=== PATIENT | male | born 1980 | race Caucasian/White ===

== ENCOUNTER 2019-04-23 15:18 | Emergency (ER) | payer OTHER ==
[~2019-04-23] VITALS: Ht 188 cm; Wt 90.7 kg
[2019-04-23] MEDS ORDERED: Augmentin 875-1 EACH PO (15:44)
== END 2019-04-23 15:50 | disposition home or self-care (01) ==
LOC: ER 15:18
DX: S61.051A Open bite of right thumb without damage to nail, initial encounter (principal); W54.0XXA Bitten by dog, initial encounter; Z88.8 Allergy status to other drugs, medicaments and biological substances
CPT/HCPCS: 90471; 90714; 99283-25

== ENCOUNTER 2019-09-12 10:16 | Emergency (ER) | payer OTHER ==
[~2019-09-12] VITALS: Ht 188 cm; Wt 95.2 kg
[~2019-09-12 10:16] MED LIST: Augmentin 875-1 EACH PO
[2019-09-12 11:05] LABS: BASOPHILS ABSOLUTE AUTO 0.03 K/mm3 (0.00-0.23); BASOPHILS PERCENT AUTO 1 % (0-2); EOSINOPHILS ABSOLUTE AUTO 0.14 K/mm3 (0.00-0.68); EOSINOPHILS PERCENT AUTO 3 % (0-6); Hematocrit 46.9 % (37.0-53.0); Hemoglobin 15.8 g/dL (13.5-17.5); IMMATURE GRAN ABSOLUTE AUTO 0.01 K/mm3 (0.00-0.10); IMMATURE GRAN PERCENT AUTO 0 % (0-1); LYMPHOCYTES ABSOLUTE AUTO 1.26 K/mm3 (0.84-5.20); LYMPHOCYTES PERCENT AUTO 23 % (21-46); MONOCYTES ABSOLUTE AUTO 0.36 K/mm3 (0.16-1.47); MONOCYTES PERCENT AUTO 7 % (4-13); Mean Corpuscular HGB 30.6 pg (26.0-34.0); Mean Corpuscular HGB Conc 33.7 g/dL (31.5-36.5); Mean Corpuscular Volume 91 fL (80-100); Mean Platelet Volume 10.5 fL (9.1-12.4); NEUTROPHILS ABSOLUTE AUTO 3.62 K/mm3 (1.96-9.15); NEUTROPHILS PERCENT AUTO 67 % (41-73); Platelet Count 188 K/mm3 (150-400); RDW Coefficient Variation 12.4 % (11.7-14.2); RDW Standard Deviation 41.7 fL (35.1-46.3); Red Blood Cell Count 5.17 M/mm3 (4.30-5.90); White Blood Cell Count 5.42 K/mm3 (4.00-11.30)
[2019-09-12 11:27] LABS: Alanine Aminotransfer (ALT/SGP 23 U/L (12-78); Albumin/Globulin Ratio 1.2 (0.8-1.8); Alk Phos 82 U/L (50-136); Anion Gap 6 mmol/L (6-16); Aspartate Aminotrans (AST/SGOT 25 U/L (12-37); Bilirubin, Total 0.6 mg/dL (0.1-1.0); Blood Urea Nitrogen 14 mg/dL (8-24); Bun/Creatinine Ratio 16.7 (12.0-20.0); CO2, Blood 23 mmol/L (21-32); Calcium, Blood 8.6 mg/dL (8.5-10.1); Chloride, Blood 111 mmol/L (98-108); Creatinine, Blood 0.84 mg/dL (0.60-1.20); Globulin, Blood 3.4 g/dL (2.2-4.0); Glomerular Filtration Rate >60 (60-); Glucose, Blood 99 mg/dL (70-99); Potassium, Blood 4.3 mmol/L (3.5-5.5); Sodium, Blood 140 mmol/L (136-145); Total Protein, Blood 7.4 g/dL (6.4-8.2); Troponin I <0.015 ng/mL (0.000-0.040)
[2019-09-12] MEDS ORDERED: Prednisone20 MG PO (12:23)
[2019-09-12] MEDS ORDERED: ALBU90OI INH (12:23)
== END 2019-09-12 12:53 | disposition home or self-care (01) ==
LOC: ER 10:16
PROVIDERS: Emergency Medicine
DX: J06.9 Acute upper respiratory infection, unspecified (principal); Z91.09 Other allergy status, other than to drugs and biological substances; Z87.01 Personal history of pneumonia (recurrent); Z87.891 Personal history of nicotine dependence
CPT/HCPCS: 36415; 71046; 80053; 84484; 85025; 93005; 93010; 99284-25

== ENCOUNTER → 2022-11-25 | Outpatient (CLI) | payer OTHER ==
[~2022-11-25] MED LIST changes: +ALBU90OI INH; +NAPROXEN500 MG PO; +Prednisone20 MG PO; +XARELTO20 M1 PO
[2022-11-25 12:11] LABS: BASOPHILS ABSOLUTE AUTO 0.02 K/mm3 (0.00-0.23); BASOPHILS PERCENT AUTO 0 % (0-2); EOSINOPHILS ABSOLUTE AUTO 0.08 K/mm3 (0.00-0.68); EOSINOPHILS PERCENT AUTO 1 % (0-6); IMMATURE GRAN ABSOLUTE AUTO 0.04 K/mm3 (0.00-0.10); IMMATURE GRAN PERCENT AUTO 1 % (0-1); LYMPHOCYTES ABSOLUTE AUTO 0.91 K/mm3 (0.84-5.20); LYMPHOCYTES PERCENT AUTO 12 % (21-46); MONOCYTES ABSOLUTE AUTO 0.72 K/mm3 (0.16-1.47); MONOCYTES PERCENT AUTO 9 % (4-13); Mean Corpuscular HGB 29.1 pg (26.0-34.0); Mean Corpuscular HGB Conc 34.2 g/dL (31.5-36.5); Mean Corpuscular Volume 85 fL (80-100); Mean Platelet Volume 10.6 fL (9.1-12.4); NEUTROPHILS ABSOLUTE AUTO 6.13 K/mm3 (1.96-9.15); NEUTROPHILS PERCENT AUTO 78 % (41-73); Platelet Count 198 K/mm3 (150-400); RDW Standard Deviation 43.8 fL (35.1-46.3); Red Blood Cell Count 4.47 M/mm3 (4.30-5.90)
[2022-11-25 12:22] LABS: Albumin, Blood 2.7 g/dL (3.4-5.0); Albumin/Globulin Ratio 0.6 (0.8-1.8); Bilirubin, Total 0.5 mg/dL (0.1-1.0); Bun/Creatinine Ratio 14.5 (12.0-20.0); Calcium, Blood 8.6 mg/dL (8.5-10.1); Creatinine, Blood 1.1 mg/dL (0.60-1.20); Globulin, Blood 4.8 g/dL (2.2-4.0); Total Protein, Blood 7.5 g/dL (6.4-8.2)
[2022-11-25 13:08] LABS: CPK Creatine Kinase 45 U/L (39-308)
[2022-11-25 13:25] LABS: Creatine Kinase MB <1.0 ng/mL (0.0-3.6); Creatine Kinase MB Index Unable to Calculate (0.0-4.0)
== END | disposition home or self-care (01) ==
LOC: LAB SHORT 12:04 → LAB 12:04
PROVIDERS: Emergency Medicine
DX: R53.83 Other fatigue (principal); R06.09 Other forms of dyspnea
CPT/HCPCS: 80053; 82550; 82553; 83880; 84484; 85025

== ENCOUNTER 2022-11-29 20:46 | Inpatient (IN) | payer OTHER ==
[~2022-11-29] VITALS: Ht 185.4 cm; Wt 96.2 kg
[~2022-11-29 20:46] MED LIST changes: -NAPROXEN500 MG PO; -XARELTO20 M1 PO
[2022-11-29 23:30] LABS: International Normalized Ratio 1.13; Prothrombin Time Results 11.8 Sec (9.7-11.5)
[2022-11-29 23:33] LABS: Albumin, Blood 2.8 g/dL (3.4-5.0); Albumin/Globulin Ratio 0.6 (0.8-1.8); Bilirubin, Direct 0.1 mg/dL (0.0-0.3); Bilirubin, Indirect 0.2 mg/dL (0.1-0.7); Bilirubin, Total 0.3 mg/dL (0.1-1.0); Globulin, Blood 4.7 g/dL (2.2-4.0); Total Protein, Blood 7.5 g/dL (6.4-8.2)
[2022-11-30] LABS: Source, Urine Clean Catch
[2022-11-30 00:02] LABS: Bilirubin, Urine Neg (Neg); Blood, Urine 1+ (Neg); Glucose Qualitative, Urine Neg (Neg); Ketones, Urine Neg (Neg); Leukocyte Esterase, Urine Neg (Neg); Nitrite, Urine Neg (Neg); Protein, Urine 1+ (Neg); Specific Gravity, Urine 1.015 (1.003-1.022); Urobilinogen, Urine NORM (Normal); pH, Urine 6.5 (5.0-8.0)
[2022-11-30 00:18] LABS: Appearance, Urine Clear (Clear); Color, Urine Yellow (P-Yellow)
[2022-11-30 00:19] LABS: Bacteria Few /hpf; Mucus Light (0-Heavy); Red Blood Cells, Urine 0-2 /hpf (0-2); Squamous Epithelial Cells Few /hpf (Few); White Blood Cells, Urine 0-2 /hpf (0-5)
[2022-11-30 01:16] LABS: Anti-Xa UFH, PHA Monitoring <0.10 IU/mL
[2022-11-30 07:29] LABS: BASOPHILS ABSOLUTE AUTO 0.01 K/mm3 (0.00-0.23); BASOPHILS PERCENT AUTO 0 % (0-2); EOSINOPHILS PERCENT AUTO 0 % (0-6); Hemoglobin 12.1 g/dL (13.5-17.5); IMMATURE GRAN ABSOLUTE AUTO 0.06 K/mm3 (0.00-0.10); IMMATURE GRAN PERCENT AUTO 1 % (0-1); LYMPHOCYTES ABSOLUTE AUTO 0.97 K/mm3 (0.84-5.20); LYMPHOCYTES PERCENT AUTO 18 % (21-46); MONOCYTES ABSOLUTE AUTO 0.11 K/mm3 (0.16-1.47); MONOCYTES PERCENT AUTO 2 % (4-13); Mean Corpuscular HGB 27.8 pg (26.0-34.0); Mean Corpuscular HGB Conc 31.8 g/dL (31.5-36.5); Mean Corpuscular Volume 87 fL (80-100); Mean Platelet Volume 10.2 fL (9.1-12.4); NEUTROPHILS ABSOLUTE AUTO 4.23 K/mm3 (1.96-9.15); NEUTROPHILS PERCENT AUTO 79 % (41-73); Platelet Count 273 K/mm3 (150-400); RDW Coefficient Variation 14.2 % (11.7-14.2); Red Blood Cell Count 4.35 M/mm3 (4.30-5.90); White Blood Cell Count 5.38 K/mm3 (4.00-11.30)
[2022-11-30 08:01] LABS: Albumin, Blood 2.8 g/dL (3.4-5.0); Albumin/Globulin Ratio 0.6 (0.8-1.8); Bilirubin, Total 0.4 mg/dL (0.1-1.0); Bun/Creatinine Ratio 15.5 (12.0-20.0); Calcium, Blood 8.9 mg/dL (8.5-10.1); Creatinine, Blood 0.9 mg/dL (0.60-1.20); Potassium, Blood 4.7 mmol/L (3.5-5.5); Total Protein, Blood 7.8 g/dL (6.4-8.2)
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
--- NOTE | 2022-11-30 16:49 | NUR ---
PATIENT OFF UNIT VIA HIS BED TO ASSOCIATE TEAM PHYSICIAN FOR THROMBECTOMY.
--- NOTE | 2022-11-30 18:49 | NUR ---
SHIFT SUMMARY: PATIENT RETURNED TO ROOM FROM IR AT 1836 VIA HIS BED. HEPARIN GTT RESTARTED AT 1838, PHARMACY NOTIFIED OF TIME HEPARIN GTT OFF. R GROIN SITE HAS FEM STOP IN PLACE COVERED WITH TEGADERM, NO HEMATOMA NOTED. DIET ADVANCED TO REGULAR, TRAY ORDERED BUT IT MAY BE TOO LATE FOR DELIVERY. DENIES PAIN. PT UNDERSTANDS THAT HE NEEDS TO STAY IN BED O/N. REPORT GIVEN TO Natalie SANTOS RN.
[2022-11-30] MEDS ORDERED: NAPROXEN500 MG PO (20:03)
[2022-12-01 05:00] LABS: Hematocrit 33.3 % (37.0-53.0); Hemoglobin 10.7 g/dL (13.5-17.5); Mean Corpuscular HGB 28.2 pg (26.0-34.0); Mean Corpuscular HGB Conc 32.1 g/dL (31.5-36.5); Mean Corpuscular Volume 88 fL (80-100); Mean Platelet Volume 10.2 fL (9.1-12.4); Platelet Count 261 K/mm3 (150-400); RDW Coefficient Variation 14.3 % (11.7-14.2); RDW Standard Deviation 46.1 fL (35.1-46.3); Red Blood Cell Count 3.79 M/mm3 (4.30-5.90); White Blood Cell Count 9.47 K/mm3 (4.00-11.30)
--- NOTE | 2022-12-01 05:15 | NUR ---
SHIFT SUMMARY 42 YR M ADMITTED ON 11/30/22 FOR IVC THROMBUS. FULL CODE. PT HAS BEEN VERY COOPERATIVE POST OP AND HAS NOT GOTTEN OUT OF BED SINCE HIS PROCEDURE YESTERDAY. HE HAS HAD NO C/O PAIN OR DISCOMFORT. HE REQUESTED A JELLO AND THAT IS ALL HE HAS EATEN SINCE HE CAME BACK FROM THE [place]. HEPARIN DRIP IS STILL INFUSING. PT'S HAS BEEN AT BEDSIDE FOR THE ENTIRETY OF THIS SHIFT. HE IS A&O X 4 AND IS ABLE TO COMMUNICATE HIS NEEDS. RIGHT FEMORAL SITE IS WNL W/ NO SIGNS OF BLEEDING.
[2022-12-01 06:04] LABS: Albumin, Blood 2.4 g/dL (3.4-5.0); Albumin/Globulin Ratio 0.5 (0.8-1.8); Bilirubin, Total 0.3 mg/dL (0.1-1.0); Calcium, Blood 8.4 mg/dL (8.5-10.1); Creatinine, Blood 0.89 mg/dL (0.60-1.20); Globulin, Blood 4.6 g/dL (2.2-4.0); Potassium, Blood 4.2 mmol/L (3.5-5.5)
--- NOTE | 2022-12-01 09:49 | NUR ---
LEFT MESSAGE AT [facility] VASCULAR OFFICE FOR DR. VALDIVIA. ASKED HOW LONG HEPARIN SHOULD INFUSE AND NOTIFIED THAT PT'S HGB WAS 12.1 AND HAS DECREASED TO 10.7 TODAY.
[2022-12-01] MEDS ORDERED: XARELTO20 M1 PO (12:56)
--- NOTE | 2022-12-01 15:26 | NUR ---
PATIENT DISCHARGED TO HOME ACCOMPANIED BY HIS AND A FRIEND. IV SALINE LOCK REMOVED WITHOUT INCIDENT. VERBALIZED UNDERSTANDING OF D/C INSTRUCTIONS. HAS F/U APPT WITH DR. BRITTON AND WAS GIVEN SAMPLE PACK OF XARELTO. OFF UNIT VIA W/C AT 1405. NO PERSONAL BELONGINGS LEFT BEHIND IN ROOM.
== END 2022-12-01 14:21 | disposition home or self-care (01) | DRG 271 ==
LOC: ER 20:46 → MEDS 11-30 01:25
PROVIDERS: Internal Medicine; Student in an Organized Health Care Education/Training Program; ADMIT Internal Medicine
PROC: 06C03ZZ Extirpation of Matter from Inferior Vena Cava, Percutaneous Approach (ICD-10-PCS; principal; 2022-11-30)
PROC: 06CC3ZZ Extirpation of Matter from Right Common Iliac Vein, Percutaneous Approach (ICD-10-PCS; 2022-11-30)
PROC: B519YZA Fluoroscopy of Inferior Vena Cava using Other Contrast, Guidance (ICD-10-PCS; 2022-11-30)
PROC: B51 Imaging, Veins, Fluoroscopy (ICD-10-PCS; 2022-11-30)
PROC: B549ZZA Ultrasonography of Inferior Vena Cava, Guidance (ICD-10-PCS; 2022-11-30)
PROC: B54BZZA Ultrasonography of Right Lower Extremity Veins, Guidance (ICD-10-PCS; 2022-11-30)
DX: I82.220 Acute embolism and thrombosis of inferior vena cava (principal); E44.0 Moderate protein-calorie malnutrition; I82.429 Acute embolism and thrombosis of unspecified iliac vein; B34.9 Viral infection, unspecified; R74.01 Elevation of levels of liver transaminase levels; R59.1 Generalized enlarged lymph nodes; R63.4 Abnormal weight loss; R16.2 Hepatomegaly with splenomegaly, not elsewhere classified; Z86.718 Personal history of other venous thrombosis and embolism; Z91.041 Radiographic dye allergy status; Z79.899 Other long term (current) drug therapy; Z79.51 Long term (current) use of inhaled steroids; Z79.52 Long term (current) use of systemic steroids; Z98.890 Other specified postprocedural states; Z90.49 Acquired absence of other specified parts of digestive tract; Z87.891 Personal history of nicotine dependence; Z68.28 Body mass index [BMI] 28.0-28.9, adult; Z79.2 Long term (current) use of antibiotics
CPT/HCPCS: 36415; 37187; 70450; 71250; 74177; 75820; 75825; 76937; 80053; 80076; 81001; 83605; 85025; 85027; 85520; 85610; 85730; 87040; 93970; 96365; 96366; 96375; 99152; 99153; 99284-25; C1751; C1757; C1769; C1887; C1894; J1200; J1644; J1720; J2250; J2270; J2930; J3010; J7030; J7040; Q9967

== ENCOUNTER → 2022-12-07 | Outpatient (CLI) | payer OTHER ==
[~2022-12-07] MED LIST changes: +NAPROXEN500 MG PO; +XARELTO20 M1 PO
[2022-12-07 09:23] LABS: BASOPHILS ABSOLUTE AUTO 0.02 K/mm3 (0.00-0.23); BASOPHILS PERCENT AUTO 0 % (0-2); EOSINOPHILS ABSOLUTE AUTO 0.03 K/mm3 (0.00-0.68); EOSINOPHILS PERCENT AUTO 0 % (0-6); Hematocrit 35.5 % (37.0-53.0); Hemoglobin 11.5 g/dL (13.5-17.5); IMMATURE GRAN ABSOLUTE AUTO 0.08 K/mm3 (0.00-0.10); IMMATURE GRAN PERCENT AUTO 1 % (0-1); LYMPHOCYTES PERCENT AUTO 9 % (21-46); MONOCYTES ABSOLUTE AUTO 0.76 K/mm3 (0.16-1.47); MONOCYTES PERCENT AUTO 8 % (4-13); Mean Corpuscular HGB 28.7 pg (26.0-34.0); Mean Corpuscular HGB Conc 32.4 g/dL (31.5-36.5); Mean Corpuscular Volume 89 fL (80-100); Mean Platelet Volume 9.4 fL (9.1-12.4); NEUTROPHILS ABSOLUTE AUTO 8.09 K/mm3 (1.96-9.15); NEUTROPHILS PERCENT AUTO 82 % (41-73); Platelet Count 289 K/mm3 (150-400); RDW Coefficient Variation 14.6 % (11.7-14.2); RDW Standard Deviation 46.8 fL (35.1-46.3); Red Blood Cell Count 4.01 M/mm3 (4.30-5.90); White Blood Cell Count 9.88 K/mm3 (4.00-11.30)
[2022-12-07 10:24] LABS: Albumin, Blood 2.9 g/dL (3.4-5.0); Albumin/Globulin Ratio 0.5 (0.8-1.8); Bilirubin, Total 0.7 mg/dL (0.1-1.0); Bun/Creatinine Ratio 8.7 (12.0-20.0); Calcium, Blood 8.6 mg/dL (8.5-10.1); Creatinine, Blood 1.15 mg/dL (0.60-1.20); Globulin, Blood 5.7 g/dL (2.2-4.0); Potassium, Blood 4.4 mmol/L (3.5-5.5); Total Protein, Blood 8.6 g/dL (6.4-8.2)
[2022-12-08 07:11] LABS: HBSAG SCREEN Negative (Negative); HCV AB Non Reactive (Non Reactive); HEP B CORE AB, TOT Negative (Negative)
[2022-12-08 08:11] LABS: HIV AB/P24 AG SCREEN Non Reactive (Non Reactive)
== END | disposition home or self-care (01) ==
LOC: LAB 09:16 → LAB SHORT 09:16
PROVIDERS: Chiropractor
DX: R50.9 Fever, unspecified (principal); R74.01 Elevation of levels of liver transaminase levels; D64.9 Anemia, unspecified
CPT/HCPCS: 80053; 83605; 85025; 85060; 86704; 86708; 86803; 87340; 87389

== ENCOUNTER 2022-12-08 09:05 | Inpatient (IN) | payer OTHER ==
[~2022-12-08] VITALS: Ht 188 cm; Wt 93.1 kg
[2022-12-08 10:50] LABS: BASOPHILS ABSOLUTE AUTO 0.02 K/mm3 (0.00-0.23); BASOPHILS PERCENT AUTO 0 % (0-2); EOSINOPHILS ABSOLUTE AUTO 0.03 K/mm3 (0.00-0.68); EOSINOPHILS PERCENT AUTO 0 % (0-6); Hematocrit 33.8 % (37.0-53.0); Hemoglobin 10.8 g/dL (13.5-17.5); IMMATURE GRAN ABSOLUTE AUTO 0.05 K/mm3 (0.00-0.10); IMMATURE GRAN PERCENT AUTO 1 % (0-1); LYMPHOCYTES ABSOLUTE AUTO 1.13 K/mm3 (0.84-5.20); LYMPHOCYTES PERCENT AUTO 17 % (21-46); MONOCYTES ABSOLUTE AUTO 0.63 K/mm3 (0.16-1.47); MONOCYTES PERCENT AUTO 9 % (4-13); Mean Corpuscular HGB 28.1 pg (26.0-34.0); Mean Corpuscular Volume 88 fL (80-100); Mean Platelet Volume 9.5 fL (9.1-12.4); NEUTROPHILS ABSOLUTE AUTO 4.82 K/mm3 (1.96-9.15); NEUTROPHILS PERCENT AUTO 72 % (41-73); Platelet Count 273 K/mm3 (150-400); RDW Coefficient Variation 14.6 % (11.7-14.2); RDW Standard Deviation 46.9 fL (35.1-46.3); Red Blood Cell Count 3.85 M/mm3 (4.30-5.90); White Blood Cell Count 6.68 K/mm3 (4.00-11.30)
[2022-12-08 11:08] LABS: Albumin, Blood 2.9 g/dL (3.4-5.0); Albumin/Globulin Ratio 0.5 (0.8-1.8); Bilirubin, Total 0.5 mg/dL (0.1-1.0); Bun/Creatinine Ratio 12.6 (12.0-20.0); Calcium, Blood 9.1 mg/dL (8.5-10.1); Creatinine, Blood 0.95 mg/dL (0.60-1.20); Globulin, Blood 5.6 g/dL (2.2-4.0); Potassium, Blood 4.2 mmol/L (3.5-5.5); Total Protein, Blood 8.5 g/dL (6.4-8.2)
[2022-12-08 11:42] LABS: Source, Urine Clean Catch
[2022-12-08 11:46] LABS: Appearance, Urine Clear (Clear); Bilirubin, Urine Neg (Neg); Blood, Urine 3+ (Neg); Color, Urine Yellow (P-Yellow); Glucose Qualitative, Urine Neg (Neg); Ketones, Urine Neg (Neg); Leukocyte Esterase, Urine Neg (Neg); Nitrite, Urine Neg (Neg); Protein, Urine Neg (Neg); Urobilinogen, Urine NORM (Normal)
[2022-12-08 12:04] LABS: Red Blood Cells, Urine 0-2 /hpf (0-2); White Blood Cells, Urine 0-2 /hpf (0-5)
[2022-12-08 12:05] LABS: Bacteria Few /hpf; Squamous Epithelial Cells Rare /hpf (Few)
[2022-12-08 12:06] LABS: Mucus Light (0-Heavy)
[2022-12-08 16:08] LABS: International Normalized Ratio 1.36
[2022-12-08 16:51] LABS: Anti-Xa UFH, PHA Monitoring >1.50 IU/mL
--- NOTE | 2022-12-08 17:53 | NUR ---
PT ARRIVED TO ROOM 1700 VIA CART. NO DISTRESS NOTED. PT DOES HAVE CANE TO AMBULATE WITH AND WAS ABLE TO STAND AND WALK TO BED. PT AOX4 AND COOPERATIVE OF CARE. CALL LIGHT WITHIN REACH WILL CONTINUE TO MONITOR.
[2022-12-09 04:27] LABS: BASOPHILS ABSOLUTE AUTO 0.02 K/mm3 (0.00-0.23); BASOPHILS PERCENT AUTO 0 % (0-2); EOSINOPHILS ABSOLUTE AUTO 0.01 K/mm3 (0.00-0.68); EOSINOPHILS PERCENT AUTO 0 % (0-6); Hematocrit 30.3 % (37.0-53.0); Hemoglobin 9.7 g/dL (13.5-17.5); IMMATURE GRAN ABSOLUTE AUTO 0.05 K/mm3 (0.00-0.10); IMMATURE GRAN PERCENT AUTO 1 % (0-1); LYMPHOCYTES ABSOLUTE AUTO 1.07 K/mm3 (0.84-5.20); LYMPHOCYTES PERCENT AUTO 16 % (21-46); MONOCYTES ABSOLUTE AUTO 0.58 K/mm3 (0.16-1.47); MONOCYTES PERCENT AUTO 9 % (4-13); Mean Corpuscular HGB 28.4 pg (26.0-34.0); Mean Corpuscular Volume 89 fL (80-100); Mean Platelet Volume 9.6 fL (9.1-12.4); NEUTROPHILS ABSOLUTE AUTO 4.98 K/mm3 (1.96-9.15); NEUTROPHILS PERCENT AUTO 74 % (41-73); Platelet Count 253 K/mm3 (150-400); RDW Coefficient Variation 14.4 % (11.7-14.2); RDW Standard Deviation 46.4 fL (35.1-46.3); Red Blood Cell Count 3.42 M/mm3 (4.30-5.90); White Blood Cell Count 6.71 K/mm3 (4.00-11.30)
[2022-12-09 04:46] LABS: Albumin, Blood 2.6 g/dL (3.4-5.0); Albumin/Globulin Ratio 0.5 (0.8-1.8); Bilirubin, Total 0.5 mg/dL (0.1-1.0); Bun/Creatinine Ratio 16.8 (12.0-20.0); C-REACTIVE PROTEIN, EXT RANGE 3.5 mg/dL (0.000-0.300); Calcium, Blood 8.5 mg/dL (8.5-10.1); Creatinine, Blood 0.89 mg/dL (0.60-1.20); Potassium, Blood 4.2 mmol/L (3.5-5.5); Total Protein, Blood 7.6 g/dL (6.4-8.2)
--- NOTE | 2022-12-09 10:46 | NUR ---
DR PANG IN ROOM. DISCUSSED PT NPO. PT NEEDS GUANAKO. CALLED DR HSU. HE WILL SCHEDULE EG THEN GET SOMEONE TO DO GUANAKO TODAY. KEEP NPO.
--- NOTE | 2022-12-09 11:42 | NUR ---
TO GUANAKO PROCEDURE AT THIS TIME.
--- NOTE | 2022-12-09 12:29 | NUR ---
PATIENT BROUGHT BACK TO PROCEDURE ROOM IN [facility]. PATIENT PREPPED FOR GUANAKO. VSS.SEDATION GIVEN. PATIENT UNABLE TO PASS PROBE. PROCEDURE ENDED AT 12:22. PATIENT RETURNED TO ROOM VIA WHEELCHAIR. VSS ON ROOM AIR. PATIENT CONVERSING APPROPRIATELY.
--- NOTE | 2022-12-09 14:32 | NUR ---
NOTES TO CONTINUE HEPARIN GTT AT SAME RATE
--- NOTE | 2022-12-09 16:37 | NUR ---
PT QUITE PLEASANT ANBD COOP. TO ROOM THIS AFT. HAD ECHO THIS MORNING. THEN TO GUANAKO. HEART CENTER STATES UNABLE TO GET PROBE PAST STRICTURES IN THROAT. SO DID NOT PERFORM GUANAKO. PT KENNEDY ICE, THEN WATER, THEN JELLO, THEN LUNCH UPON RETURN TO ROOM. HEPARIN CONTINUES TO RUN. NO OTHER CONCERNS NOTED. BED IN LOW POSITION, CALLLITE IN REACH, CALLS APPROP
--- NOTE | 2022-12-09 22:12 | NUR ---
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 CURRENTLY TESTING POSITVE FOR STAFF IN BLOOD. PER ORDER FOR ISO CONTACT FOR MRSA DUE TO HX AND PRESUME POSITIVE UNTIL RULED OUT FOR CURRENT MRSA.
[2022-12-09 22:39] LABS: Vancomycin, Trough 14.3 ug/mL (5.0-10.0)
[2022-12-10 05:07] LABS: BASOPHILS ABSOLUTE AUTO 0.02 K/mm3 (0.00-0.23); BASOPHILS PERCENT AUTO 0 % (0-2); EOSINOPHILS ABSOLUTE AUTO 0.07 K/mm3 (0.00-0.68); EOSINOPHILS PERCENT AUTO 1 % (0-6); Hematocrit 29.8 % (37.0-53.0); Hemoglobin 9.5 g/dL (13.5-17.5); IMMATURE GRAN ABSOLUTE AUTO 0.03 K/mm3 (0.00-0.10); IMMATURE GRAN PERCENT AUTO 1 % (0-1); LYMPHOCYTES ABSOLUTE AUTO 1.23 K/mm3 (0.84-5.20); LYMPHOCYTES PERCENT AUTO 23 % (21-46); MONOCYTES ABSOLUTE AUTO 0.54 K/mm3 (0.16-1.47); MONOCYTES PERCENT AUTO 10 % (4-13); Mean Corpuscular HGB 28.6 pg (26.0-34.0); Mean Corpuscular HGB Conc 31.9 g/dL (31.5-36.5); Mean Corpuscular Volume 90 fL (80-100); Mean Platelet Volume 9.5 fL (9.1-12.4); NEUTROPHILS ABSOLUTE AUTO 3.41 K/mm3 (1.96-9.15); NEUTROPHILS PERCENT AUTO 64 % (41-73); Platelet Count 207 K/mm3 (150-400); RDW Coefficient Variation 14.6 % (11.7-14.2); RDW Standard Deviation 46.8 fL (35.1-46.3); Red Blood Cell Count 3.32 M/mm3 (4.30-5.90)
[2022-12-10 05:35] LABS: Albumin, Blood 2.6 g/dL (3.4-5.0); Albumin/Globulin Ratio 0.6 (0.8-1.8); Bilirubin, Total 0.4 mg/dL (0.1-1.0); Bun/Creatinine Ratio 16.9 (12.0-20.0); C-REACTIVE PROTEIN, EXT RANGE 2.22 mg/dL (0.000-0.300); Calcium, Blood 8.5 mg/dL (8.5-10.1); Creatinine, Blood 0.95 mg/dL (0.60-1.20); Globulin, Blood 4.5 g/dL (2.2-4.0); Potassium, Blood 4.1 mmol/L (3.5-5.5); Total Protein, Blood 7.1 g/dL (6.4-8.2)
--- NOTE | 2022-12-10 06:12 | NUR ---
MANAGER CONTRACTING SUMMARY PT A/OX4; AT BEDSIDE T/O THE NIGHT. PT PLACED IN CONTACT PRECAUTIONS FOR MRSA; SEE NOTE. NO ACUTE CHANGES. PT ABLE TO MAKE NEEDS KNOWN. PT MILDLY RESTLESS T/O THE NIGHT. C/O 4/10 PAIN IN LUQ. CALL TO STUDENT TEACHING COORDINATOR/DR COLLINS. NEW ORDER FOR 650MG TYLENOL Q6 PRN. CRITICAL APPT LAB 103.2 AT 0525; NOTIFIED PHARMACY; HEP DRIP ADJUSTED DOWN TO 20U/KG/HR, 37.6MLS HR. PT TOLERATING ORAL INTAKE. CALL LIGHT ACCESSIBLE.
--- NOTE | 2022-12-10 16:26 | NUR ---
SHIFT SUMMARY- NO ACUTE EVENTS THIS SHIFT. PT AOOX4. APPROPRIATE.
--- NOTE | 2022-12-10 17:02 | NUR ---
PT IS A/OX4, PLEASANT AND COOPERATIVE. TO OVER CARE OF THE PT AT THIS TIME. REPORT WAS TAKEN FROM SIOMARA CRUZ. PT APPEARS TO BE BREATHING EASILY AT THIS TIME. REPORTS NO NEEDS AT THIS TIME. CALL LIGHT IN REACH. WILL CONTINUE TO MONIOTR AND ASSESS FOR CHANGES
[2022-12-10 22:18] LABS: Vancomycin, Trough 13.1 ug/mL (5.0-10.0)
[2022-12-11 00:14] LABS: BASOPHILS ABSOLUTE AUTO 0.02 K/mm3 (0.00-0.23); BASOPHILS PERCENT AUTO 0 % (0-2); EOSINOPHILS ABSOLUTE AUTO 0.08 K/mm3 (0.00-0.68); EOSINOPHILS PERCENT AUTO 2 % (0-6); Hematocrit 30.2 % (37.0-53.0); Hemoglobin 9.6 g/dL (13.5-17.5); IMMATURE GRAN ABSOLUTE AUTO 0.04 K/mm3 (0.00-0.10); IMMATURE GRAN PERCENT AUTO 1 % (0-1); LYMPHOCYTES ABSOLUTE AUTO 1.38 K/mm3 (0.84-5.20); LYMPHOCYTES PERCENT AUTO 28 % (21-46); MONOCYTES ABSOLUTE AUTO 0.52 K/mm3 (0.16-1.47); MONOCYTES PERCENT AUTO 11 % (4-13); Mean Corpuscular HGB 28.4 pg (26.0-34.0); Mean Corpuscular HGB Conc 31.8 g/dL (31.5-36.5); Mean Corpuscular Volume 89 fL (80-100); Mean Platelet Volume 9.5 fL (9.1-12.4); NEUTROPHILS ABSOLUTE AUTO 2.92 K/mm3 (1.96-9.15); NEUTROPHILS PERCENT AUTO 59 % (41-73); Platelet Count 217 K/mm3 (150-400); RDW Coefficient Variation 14.4 % (11.7-14.2); RDW Standard Deviation 46.8 fL (35.1-46.3); Red Blood Cell Count 3.38 M/mm3 (4.30-5.90); White Blood Cell Count 4.96 K/mm3 (4.00-11.30)
[2022-12-11 00:37] LABS: Albumin, Blood 2.5 g/dL (3.4-5.0); Albumin/Globulin Ratio 0.5 (0.8-1.8); Bilirubin, Total 0.3 mg/dL (0.1-1.0); Bun/Creatinine Ratio 14.6 (12.0-20.0); Creatinine, Blood 0.89 mg/dL (0.60-1.20); Globulin, Blood 4.6 g/dL (2.2-4.0); Potassium, Blood 3.9 mmol/L (3.5-5.5); Total Protein, Blood 7.1 g/dL (6.4-8.2)
--- NOTE | 2022-12-11 04:57 | NUR ---
SHIFT SUMMARY 42 YR M ADMITTED ON 12/08/22 FOR BACTREMIA. FULL CODE. NO ACUTE CHANGES THIS SHIFT. PT IS A^O X 4 AND IS INDEPENDANT IN THE ROOM. HEPARIN INFUSING. PER PHARMACY HEPARIN WAS INCREASED TWICE THIS SHIFT AND IS NOW RUNNING @ 22ML/KG/HR. NO C/O PAIN OR DISCOMFORT THIS SHIFT.
--- NOTE | 2022-12-11 15:52 | NUR ---
SHIFT SUMMARY: NO NEW ACUTE CHANGES IN PATIENT CONDITION T/O SHIFT. PATIENT A&OX4. CALM, PLEASANT AND COOPERATIVE c CARE. USES CALL LIGHT APPRORIATELY AND ABLE TO MAKE NEEDS KNOWN. DENIES CP/PRESSURE, N/V, SOB AND NO FEVER. ON TELE, SR HR 87 BPM c BBB T/O SHIFT. PER, CUSTOMER SUPPORT TECHNICIAN GHANSHYAM. PATIENT REPORTS LAST GOOD BM WAS MONDAY. THIS RN CALLED DR. WANG REGARDING PATIENT ISSUES. DR. WANG PLACED ORDER ON EMAR. IV TO LAC INFUSING HEPARIN RATE CONTROLLED BY PHARMACY. IV TO R FOREARM SALINE LOCKED. VITAL SIGNS REVIEWED. BLOOD CX WAS DRAWN TODAY, AWAITING FOR RESULT. PATIENT AMBULATES IN ROOM INDEPENDENTLY. RECEIVED SCHEDULED MEDS PER EMAR. CALL LIGHT IN REACH.
[2022-12-12 03:20] LABS: BASOPHILS ABSOLUTE AUTO 0.03 K/mm3 (0.00-0.23); BASOPHILS PERCENT AUTO 1 % (0-2); EOSINOPHILS ABSOLUTE AUTO 0.08 K/mm3 (0.00-0.68); EOSINOPHILS PERCENT AUTO 2 % (0-6); Hematocrit 32.3 % (37.0-53.0); Hemoglobin 10.3 g/dL (13.5-17.5); IMMATURE GRAN ABSOLUTE AUTO 0.03 K/mm3 (0.00-0.10); IMMATURE GRAN PERCENT AUTO 1 % (0-1); LYMPHOCYTES ABSOLUTE AUTO 1.32 K/mm3 (0.84-5.20); LYMPHOCYTES PERCENT AUTO 27 % (21-46); MONOCYTES PERCENT AUTO 10 % (4-13); Mean Corpuscular HGB 28.6 pg (26.0-34.0); Mean Corpuscular HGB Conc 31.9 g/dL (31.5-36.5); Mean Corpuscular Volume 90 fL (80-100); Mean Platelet Volume 9.8 fL (9.1-12.4); NEUTROPHILS ABSOLUTE AUTO 3.01 K/mm3 (1.96-9.15); NEUTROPHILS PERCENT AUTO 61 % (41-73); Platelet Count 214 K/mm3 (150-400); RDW Coefficient Variation 14.6 % (11.7-14.2); RDW Standard Deviation 46.8 fL (35.1-46.3); White Blood Cell Count 4.97 K/mm3 (4.00-11.30)
[2022-12-12 03:39] LABS: Albumin, Blood 2.6 g/dL (3.4-5.0); Albumin/Globulin Ratio 0.6 (0.8-1.8); Bilirubin, Total 0.3 mg/dL (0.1-1.0); Bun/Creatinine Ratio 12.1 (12.0-20.0); Calcium, Blood 8.3 mg/dL (8.5-10.1); Creatinine, Blood 0.91 mg/dL (0.60-1.20); Globulin, Blood 4.7 g/dL (2.2-4.0); Potassium, Blood 4.1 mmol/L (3.5-5.5); Total Protein, Blood 7.3 g/dL (6.4-8.2)
--- NOTE | 2022-12-12 05:01 | NUR ---
BARBER SHOP OPERATOR SUMMARY PT A/OX4. PLEASANT AND COOPERATIVE. NO ACUTE CHANGES. NO CHANGE TO HEPARIN DRIP RATE; 23 U/KG/HR, 43.2 MLS HR. PT ABLE TO MAKE NEEDS KNOWN. VSS. PT INDPENDENT IN ROOM; CALL LIGHT ACCESSIBLE.
--- NOTE | 2022-12-12 16:37 | NUR ---
SHIFT SUMMARY HEPARIN GTT CONTINUED THIS SHIFT. NO CHANGES IN RATE. PT MEDICATED WITH MILK OF MAG AND HAD A LARGE BM TODAY. PT AWAITING PICC PLACEMENT & BLOOD CULTURES PRIOR TO DC. NO OTHER ACUTE CHANGES IN ASSESSMENT AT THIS TIME. PT REFUSED NEED FOR PAIN MEDS. VS REIVEWED. CALL LIGHT IN REACH. IND IN ROOM. DENIES OTHER NEEDS AT THIS TIME.
[2022-12-12 22:35] LABS: Vancomycin, Trough 15.3 ug/mL (5.0-10.0)
[2022-12-13 04:57] LABS: BASOPHILS ABSOLUTE AUTO 0.03 K/mm3 (0.00-0.23); BASOPHILS PERCENT AUTO 1 % (0-2); EOSINOPHILS ABSOLUTE AUTO 0.15 K/mm3 (0.00-0.68); EOSINOPHILS PERCENT AUTO 3 % (0-6); Hematocrit 30.4 % (37.0-53.0); Hemoglobin 9.7 g/dL (13.5-17.5); IMMATURE GRAN ABSOLUTE AUTO 0.06 K/mm3 (0.00-0.10); IMMATURE GRAN PERCENT AUTO 1 % (0-1); LYMPHOCYTES ABSOLUTE AUTO 1.41 K/mm3 (0.84-5.20); LYMPHOCYTES PERCENT AUTO 29 % (21-46); MONOCYTES PERCENT AUTO 12 % (4-13); Mean Corpuscular HGB 28.4 pg (26.0-34.0); Mean Corpuscular HGB Conc 31.9 g/dL (31.5-36.5); Mean Corpuscular Volume 89 fL (80-100); Mean Platelet Volume 9.4 fL (9.1-12.4); NEUTROPHILS PERCENT AUTO 55 % (41-73); Platelet Count 208 K/mm3 (150-400); RDW Coefficient Variation 14.8 % (11.7-14.2); RDW Standard Deviation 47.1 fL (35.1-46.3); Red Blood Cell Count 3.41 M/mm3 (4.30-5.90); White Blood Cell Count 4.95 K/mm3 (4.00-11.30)
[2022-12-13 05:20] LABS: Albumin, Blood 2.7 g/dL (3.4-5.0); Albumin/Globulin Ratio 0.6 (0.8-1.8); Bilirubin, Total 0.4 mg/dL (0.1-1.0); Bun/Creatinine Ratio 12.8 (12.0-20.0); Calcium, Blood 8.7 mg/dL (8.5-10.1); Creatinine, Blood 0.94 mg/dL (0.60-1.20); Globulin, Blood 4.5 g/dL (2.2-4.0); Potassium, Blood 4.3 mmol/L (3.5-5.5); Total Protein, Blood 7.2 g/dL (6.4-8.2)
--- NOTE | 2022-12-13 06:48 | NUR ---
SHIFT SUMMARY PT A&O X 4, REPORT FROM DAYSHIFT RN- NOTIFIED DR. ALICIA OF POSITIVE BLOOD CULTURES X 2- HEPARIN INFUSING PER ORDER, PT INDEPENDENT IN ROOM - VANCOMYCIN INFUSED PER ORDER IN THE NIGHT, CALL FROM TELE MONITOR =PT HR DECREASED TO 49 -PT DENIED SOB/CP- CALL FROM LAB AT 0540- PTT AT 122.8- CALL TO PHARMACY- ORDER TO HOLD HEPARIN FOR 1 HOUR AND DECREASE DOSE- STOPPED HEPARIN FROM 0545 TO 0645- RESUMED HEPARIN AT NEW RATE- BED LOW POSITION, CALL LIGHT WITHIN REACH
--- NOTE | 2022-12-13 16:16 | NUR ---
PATIENT IS ALERT AND ORIENTED AND COOPERATIVE WITH CARE. PATIENT IS INDEPENDENT IN HIS ROOM. HE HAS A GOOD APPETITE. IV ANTIBIOTICS CHANGED THIS SHIFT. IV HEPARIN INFUSING PER PHARMACY ORDERS. ORDERS FOR MRI. NO NEW CONCERNS THIS SHIFT. WILL CONTINUE TO MONITOR
[2022-12-14 03:40] LABS: BASOPHILS ABSOLUTE AUTO 0.04 K/mm3 (0.00-0.23); BASOPHILS PERCENT AUTO 1 % (0-2); EOSINOPHILS ABSOLUTE AUTO 0.14 K/mm3 (0.00-0.68); EOSINOPHILS PERCENT AUTO 3 % (0-6); IMMATURE GRAN ABSOLUTE AUTO 0.05 K/mm3 (0.00-0.10); IMMATURE GRAN PERCENT AUTO 1 % (0-1); LYMPHOCYTES ABSOLUTE AUTO 1.61 K/mm3 (0.84-5.20); LYMPHOCYTES PERCENT AUTO 32 % (21-46); MONOCYTES ABSOLUTE AUTO 0.47 K/mm3 (0.16-1.47); MONOCYTES PERCENT AUTO 9 % (4-13); Mean Corpuscular HGB 28.2 pg (26.0-34.0); Mean Corpuscular HGB Conc 31.3 g/dL (31.5-36.5); Mean Corpuscular Volume 90 fL (80-100); Mean Platelet Volume 9.3 fL (9.1-12.4); NEUTROPHILS ABSOLUTE AUTO 2.75 K/mm3 (1.96-9.15); NEUTROPHILS PERCENT AUTO 54 % (41-73); Platelet Count 213 K/mm3 (150-400); RDW Coefficient Variation 14.9 % (11.7-14.2); RDW Standard Deviation 48.8 fL (35.1-46.3); Red Blood Cell Count 3.54 M/mm3 (4.30-5.90); White Blood Cell Count 5.06 K/mm3 (4.00-11.30)
[2022-12-14 04:01] LABS: Albumin, Blood 2.8 g/dL (3.4-5.0); Albumin/Globulin Ratio 0.6 (0.8-1.8); Bilirubin, Total 0.3 mg/dL (0.1-1.0); Bun/Creatinine Ratio 14.8 (12.0-20.0); Calcium, Blood 8.5 mg/dL (8.5-10.1); Creatinine, Blood 0.94 mg/dL (0.60-1.20); Globulin, Blood 4.7 g/dL (2.2-4.0); Potassium, Blood 4.2 mmol/L (3.5-5.5); Total Protein, Blood 7.5 g/dL (6.4-8.2)
--- NOTE | 2022-12-14 05:47 | NUR ---
SHIFT SUMMARY PT A&O X 4, PT SITTING UP IN BED DURING BEDSIDE REPORT- HEPARIN INFUSING WITHOUT PROBLEMS- 0425 CALL FROM LAB WITH PTT 106.2- CALL FROM PHARMACY TO DECREASE HEPARIN RATE TO 22UNITS/KG/HR- PT SLEPT T/O NIGHT- PT ON TELE - PT INDEPENDENT IN ROOM
--- NOTE | 2022-12-14 18:33 | NUR ---
PT IS A/OX3, PLEASANT AND COOPERATIVE. THE PT IS UP IND IN HIS ROOM. THE PT DENIED ANY PAIN, N/V OR SOB T/O THE DAY. PTS HEPRIN GTT STOPPED THIS AFTERNOON AFTER GIVEN XERELTO. PT HAVEING A MRI DONE AT THIS TIME. CALL LIGHT IN REACH WILL CONTINUE TO MONITOR AND ASSESS FOR CHANGES
--- NOTE | 2022-12-15 06:29 | NUR ---
SHIFT SUMMARY PT HAVING MRI DONE DURING BEDSIDE ROUNDS- PT RETURNED TO ROOM AT 1925 - PT REQUESTED SNACK - PT ON TELE -IV ABX GIVEN IN RIGHT FOREARM IV- PT SLEPT T/O NIGHT - PT INDEPENDENT IN ROOM-
[2022-12-15 06:56] LABS: BASOPHILS ABSOLUTE AUTO 0.03 K/mm3 (0.00-0.23); BASOPHILS PERCENT AUTO 1 % (0-2); EOSINOPHILS ABSOLUTE AUTO 0.13 K/mm3 (0.00-0.68); EOSINOPHILS PERCENT AUTO 3 % (0-6); Hematocrit 34.5 % (37.0-53.0); IMMATURE GRAN ABSOLUTE AUTO 0.07 K/mm3 (0.00-0.10); IMMATURE GRAN PERCENT AUTO 1 % (0-1); LYMPHOCYTES ABSOLUTE AUTO 1.49 K/mm3 (0.84-5.20); LYMPHOCYTES PERCENT AUTO 29 % (21-46); MONOCYTES ABSOLUTE AUTO 0.57 K/mm3 (0.16-1.47); MONOCYTES PERCENT AUTO 11 % (4-13); Mean Corpuscular HGB 28.4 pg (26.0-34.0); Mean Corpuscular HGB Conc 31.9 g/dL (31.5-36.5); Mean Corpuscular Volume 89 fL (80-100); Mean Platelet Volume 9.8 fL (9.1-12.4); NEUTROPHILS PERCENT AUTO 56 % (41-73); Platelet Count 232 K/mm3 (150-400); RDW Coefficient Variation 15.3 % (11.7-14.2); RDW Standard Deviation 49.1 fL (35.1-46.3); Red Blood Cell Count 3.87 M/mm3 (4.30-5.90); White Blood Cell Count 5.19 K/mm3 (4.00-11.30)
[2022-12-15 07:22] LABS: Albumin/Globulin Ratio 0.6 (0.8-1.8); Bilirubin, Total 0.3 mg/dL (0.1-1.0); Bun/Creatinine Ratio 14.1 (12.0-20.0); Calcium, Blood 9.3 mg/dL (8.5-10.1); Creatinine, Blood 0.93 mg/dL (0.60-1.20); Globulin, Blood 5.1 g/dL (2.2-4.0); Potassium, Blood 4.3 mmol/L (3.5-5.5); Total Protein, Blood 8.1 g/dL (6.4-8.2)
--- NOTE | 2022-12-15 17:12 | NUR ---
PT IS A/OX4, PLEASANT AND COOPERATIVE. THE PT IS UP IND IN HIS ROOM. THE PT WENT FOR A WALK TODAY OUTSIDE OF HIS ROOM. PT REPORTED FEELING VERY FATIUGED AFTER HIS RETURN. PT REPORTS CHRONIC PAIN, HOWEVER, DECLINED NEED FOR PAIN MEDICINE. CALL LIGHT IN REACH, WILL CONTINUE TO MONITOR AND ASSESS FOR CHANGES
--- NOTE | 2022-12-16 03:57 | NUR ---
SHIFT SUMMARY 42 YR M ADMITTED ON FOR BACTEREMIA. FULL CODE. NO ACUTE CHANGES THIS SHIFT. NO C/O PAIN OR DISCOMFORT REPORTED THIS SHIFT. PT APPEARS TO BE RESTING COMFORTABLY. A&O X 4 AND INDEPENDANT IN THE ROOM.
[2022-12-16 05:57] LABS: BASOPHILS ABSOLUTE AUTO 0.02 K/mm3 (0.00-0.23); BASOPHILS PERCENT AUTO 0 % (0-2); EOSINOPHILS ABSOLUTE AUTO 0.13 K/mm3 (0.00-0.68); EOSINOPHILS PERCENT AUTO 3 % (0-6); Hematocrit 33.6 % (37.0-53.0); Hemoglobin 10.8 g/dL (13.5-17.5); IMMATURE GRAN ABSOLUTE AUTO 0.08 K/mm3 (0.00-0.10); IMMATURE GRAN PERCENT AUTO 2 % (0-1); LYMPHOCYTES ABSOLUTE AUTO 1.28 K/mm3 (0.84-5.20); LYMPHOCYTES PERCENT AUTO 26 % (21-46); MONOCYTES ABSOLUTE AUTO 0.59 K/mm3 (0.16-1.47); MONOCYTES PERCENT AUTO 12 % (4-13); Mean Corpuscular HGB 28.7 pg (26.0-34.0); Mean Corpuscular HGB Conc 32.1 g/dL (31.5-36.5); Mean Corpuscular Volume 89 fL (80-100); Mean Platelet Volume 9.6 fL (9.1-12.4); NEUTROPHILS ABSOLUTE AUTO 2.81 K/mm3 (1.96-9.15); NEUTROPHILS PERCENT AUTO 57 % (41-73); Platelet Count 197 K/mm3 (150-400); RDW Coefficient Variation 15.4 % (11.7-14.2); RDW Standard Deviation 49.4 fL (35.1-46.3); Red Blood Cell Count 3.76 M/mm3 (4.30-5.90); White Blood Cell Count 4.91 K/mm3 (4.00-11.30)
[2022-12-16 06:18] LABS: Albumin, Blood 3.1 g/dL (3.4-5.0); Albumin/Globulin Ratio 0.7 (0.8-1.8); Bilirubin, Total 0.5 mg/dL (0.1-1.0); Bun/Creatinine Ratio 15.7 (12.0-20.0); Calcium, Blood 8.8 mg/dL (8.5-10.1); Creatinine, Blood 0.89 mg/dL (0.60-1.20); Globulin, Blood 4.7 g/dL (2.2-4.0); Potassium, Blood 4.2 mmol/L (3.5-5.5); Total Protein, Blood 7.8 g/dL (6.4-8.2)
--- NOTE | 2022-12-16 17:18 | NUR ---
SHIFT SUMMARY: PT A&O X4. PT HAS BEEN PLEASANT AND COOPERATIVE WITH CARE. PT INDEPENDENT IN ROOM. PT TOLERATING IV ROCEPHIN WELL. PER DR. FLORES, PT WILL NEED POWERGLIDE OR PICC LINE DUE TO POSSIBILITY OF 6 WKS OUTPT ABX TREATMENT. ASSEMBLY LOADER AWARE. NO C/O PAIN OR N/V. CALL LIGHT IN REACH. WILL CONTINUE TO MONITOR.
[2022-12-17 05:05] LABS: BASOPHILS ABSOLUTE AUTO 0.03 K/mm3 (0.00-0.23); BASOPHILS PERCENT AUTO 1 % (0-2); EOSINOPHILS ABSOLUTE AUTO 0.15 K/mm3 (0.00-0.68); EOSINOPHILS PERCENT AUTO 3 % (0-6); Hemoglobin 10.5 g/dL (13.5-17.5); IMMATURE GRAN ABSOLUTE AUTO 0.05 K/mm3 (0.00-0.10); IMMATURE GRAN PERCENT AUTO 1 % (0-1); LYMPHOCYTES ABSOLUTE AUTO 1.59 K/mm3 (0.84-5.20); LYMPHOCYTES PERCENT AUTO 33 % (21-46); MONOCYTES ABSOLUTE AUTO 0.64 K/mm3 (0.16-1.47); MONOCYTES PERCENT AUTO 13 % (4-13); Mean Corpuscular HGB 28.5 pg (26.0-34.0); Mean Corpuscular HGB Conc 31.8 g/dL (31.5-36.5); Mean Corpuscular Volume 90 fL (80-100); Mean Platelet Volume 9.8 fL (9.1-12.4); NEUTROPHILS ABSOLUTE AUTO 2.37 K/mm3 (1.96-9.15); NEUTROPHILS PERCENT AUTO 49 % (41-73); Platelet Count 203 K/mm3 (150-400); RDW Coefficient Variation 15.4 % (11.7-14.2); RDW Standard Deviation 50.4 fL (35.1-46.3); Red Blood Cell Count 3.68 M/mm3 (4.30-5.90); White Blood Cell Count 4.83 K/mm3 (4.00-11.30)
--- NOTE | 2022-12-17 05:24 | NUR ---
PT IS A&O4, INDEPENDENT WITH ADLS, RA, VSS, NO COMPLAINTS OF PAIN OR DISCOMFORT OVERNIGHT, CONTINUE POC
[2022-12-17 05:45] LABS: C-REACTIVE PROTEIN, EXT RANGE 1.29 mg/dL (0.000-0.300)
[2022-12-17 05:46] LABS: Albumin/Globulin Ratio 0.6 (0.8-1.8); Bilirubin, Total 0.3 mg/dL (0.1-1.0); Bun/Creatinine Ratio 19.3 (12.0-20.0); Calcium, Blood 8.8 mg/dL (8.5-10.1); Creatinine, Blood 0.88 mg/dL (0.60-1.20); Globulin, Blood 4.8 g/dL (2.2-4.0); Potassium, Blood 4.5 mmol/L (3.5-5.5); Total Protein, Blood 7.8 g/dL (6.4-8.2)
--- NOTE | 2022-12-17 16:47 | NUR ---
SHIFT SUMMARY PT AOX4 AND INDEPENDENT IN THE ROOM. HE HAS HAD A COUPLE VISITORS THIS SHIFT. A SMALL INCISION WOUND WAS NOTED ON HIS R PELVIC AREA, PROVIDER AWARE. A BANDAGE WAS APPLIED AND A CREAM WAS ORDERED TO START THIS EVENING. THE PT HAS BEEN COOPERATIVE AND PLEASANT, MAKING HIS NEEDS KNOWN THROUGHOUT THE SHIFT. BED IN LOWEST POSITION, CALL LIGHT WITHIN REACH. WILL REPORT TO ONCOMING NURSE.
--- NOTE | 2022-12-18 07:40 | NUR ---
FINISHING AREA SUPERVISOR SUMMARY: A&Ox4. PLEASANT AND COOPERATIVE WITH CARE. CALLS APPROPRIATELY AND IS ABLE TO COMMUNICATE NEEDS EFFECTIVELY. ORIENTED TO OWN ABILITIES AND EXHIBITS GOOD JUDGMENT. NO CONCERNS T/O THE NIGHT. VSS. BLOOD CULTURES CLEAR SO FAR. REPORT TO ONCOMING RN.
--- NOTE | 2022-12-18 18:11 | NUR ---
SHIFT SUMMARY PT AO X4, INDEPENDENT IN THE ROOM. HE HAS BEEN C/O OF L LEG PAIN AND HAS A NEW PAIN MED SCHEDULED FOR THE HS STARTING TONIGHT. NO ACUTE CHANGES HAVE OCCURRED, PT POTENTIALLY GOING TO TO RECEIVE THE PICC EARLY THIS WEEK AND DISCHARGING BY THE MIDDLE OF THE WEEK. THIS IS ALL PENDING THE CULTURES. WILL REPORT TO ONCOMING NURSE.
--- NOTE | 2022-12-19 04:31 | NUR ---
GOVERNMENT TEACHER SUMMARY NO ACUTE CHANGES. A&OX4. PATIENT EFFECTIVELY COMMUNICATES NEEDS. RR EVEN AND UNLABORED ON RA. VSS. BACTROBAN APPLIED PER ORDERS TO RIGHT GROIN WOUND. PATIENT NOTED TO SLEEP WELL THIS SHIFT. BED LOW AND LOCKED. CALL LIGHT WITHIN REACH. THIS RN WILL CONTINUE TO MONITOR.
--- NOTE | 2022-12-19 18:24 | NUR ---
SHIFT SUMMARY NO ACUTE CHANGES THIS SHIFT. PT SCHEDULED FOR A BARIUM SWALLOW STUDY TOMORROW IN THE AM. POTENTIAL D/C ON MONDAY. PT REMAINS AOX4 AND INDEPENDENT IN THE ROOM. WILL REPORT TO ONCOMING NURSE.
--- NOTE | 2022-12-20 03:21 | NUR ---
CONTRACT ACCOUNTANT SUMMARY NO ACUTE EVENTS THROUGHOUT THE NIGHT. A&OX4. PATIENT EFFECTIVELY COMMUNICATES NEEDS. RR EVEN AND UNLABORED ON RA. VSS. PATIENT REPORTS RLE PAIN IS WELL-CONTROLLED WITH GABAPENTIN. BARIUM SWALLOW STUDY IS SCHEDULED FOR THIS MORNING DUE TO PATIENT REPORTS OF DIFFICULTY PASSING FOOD, SUCH BREAD AND CHICKEN. BED LOW AND LOCKED. CALL LIGHT WITHIN REACH. THIS RN WILL CONTINUE TO MONITOR.
[2022-12-20 05:49] LABS: BASOPHILS ABSOLUTE AUTO 0.03 K/mm3 (0.00-0.23); BASOPHILS PERCENT AUTO 1 % (0-2); EOSINOPHILS ABSOLUTE AUTO 0.15 K/mm3 (0.00-0.68); EOSINOPHILS PERCENT AUTO 4 % (0-6); Hemoglobin 10.3 g/dL (13.5-17.5); IMMATURE GRAN ABSOLUTE AUTO 0.04 K/mm3 (0.00-0.10); IMMATURE GRAN PERCENT AUTO 1 % (0-1); LYMPHOCYTES ABSOLUTE AUTO 1.57 K/mm3 (0.84-5.20); LYMPHOCYTES PERCENT AUTO 37 % (21-46); MONOCYTES ABSOLUTE AUTO 0.51 K/mm3 (0.16-1.47); MONOCYTES PERCENT AUTO 12 % (4-13); Mean Corpuscular HGB Conc 32.2 g/dL (31.5-36.5); Mean Corpuscular Volume 90 fL (80-100); Mean Platelet Volume 9.8 fL (9.1-12.4); NEUTROPHILS ABSOLUTE AUTO 1.94 K/mm3 (1.96-9.15); NEUTROPHILS PERCENT AUTO 46 % (41-73); Platelet Count 194 K/mm3 (150-400); RDW Coefficient Variation 15.5 % (11.7-14.2); RDW Standard Deviation 51.2 fL (35.1-46.3); Red Blood Cell Count 3.55 M/mm3 (4.30-5.90); White Blood Cell Count 4.24 K/mm3 (4.00-11.30)
[2022-12-20 06:11] LABS: Albumin, Blood 2.8 g/dL (3.4-5.0); Albumin/Globulin Ratio 0.6 (0.8-1.8); Bilirubin, Total 0.4 mg/dL (0.1-1.0); Bun/Creatinine Ratio 21.9 (12.0-20.0); C-REACTIVE PROTEIN, EXT RANGE 0.91 mg/dL (0.000-0.300); Calcium, Blood 8.5 mg/dL (8.5-10.1); Creatinine, Blood 0.82 mg/dL (0.60-1.20); Globulin, Blood 4.7 g/dL (2.2-4.0); Potassium, Blood 4.3 mmol/L (3.5-5.5); Total Protein, Blood 7.5 g/dL (6.4-8.2)
--- NOTE | 2022-12-20 08:00 | NUR ---
pt sitting on the side of the bed awake a/ox4, pleasant and cooperative with care, follows commands well, denies pain, states he's feeling pretty good, lungs are clear t/o, resp even and unlabored, no cough noted, hrr, piv to rfa site is clear and patent, btx4, abd flat soft nontender, voids without diff skin has right groin wound, he will place dressing and ointment on himself, up indep in room, gait steady, nicolás, call light in reach.
[2022-12-20 10:39] LABS: Percent Saturation 25.7 % (20.0-50.0)
--- NOTE | 2022-12-20 18:40 | NUR ---
pt will be having a GUANAKO tomorrow, was quite anxious about it, had Dr. Figueredo speak with him on the phone, he is willing to do it, no acute changes this shift. call light in reach.
--- NOTE | 2022-12-21 02:56 | NUR ---
SHIFT SUMMARY NOC PT A/O X 4. PLEASANT AND COOPERATIVE WITH CARE. PT HAS GUANAKO SCHEDULED FOR 12/21/22 TO CHECK FOR VEGETATION ON HEART. PT ALSO HAS BLOOD CULTURES PENDING. POSSIBLE PICC LINE PLACEMENT DEPENDENT ON RESULTS OF BOTH FOR HOME ABX ADMINISTRATION. PT IS CURRENTLY RESTING WITH BED IN LOWEST POSITION, AND CALL LIGHT WITHIN REACH.
--- NOTE | 2022-12-21 19:13 | NUR ---
SUMM- PT INDEPENDANT IN ROOM. MADE NPO AFTER MIDNIGHT FOR PENDING GUANAKO- FURTHER INVESTIGATION FOUND PT NOT ON SCHEDULE. DR CHAPARRO PANG AWARE THE NEED TO CONTACT DR MEZA IN ORDER TO RESCHEDULE. WILL AGAIN HAVE PT NPO AFTER MN IN CASE PROCEDURE RESCHEDULED. IN THE MEAN TIME PT IS TOLERATING FOOD AND FLUIDS. DENIES PAIN. CONT IV ABX. REPORTED ALL TO NIGHT RN.
--- NOTE | 2022-12-22 05:35 | NUR ---
SHIFT SUMMARY PT IS A&O4, INDEPENDENT WITH ADLS, RA, NPO SINCE MIDNIGHT FOR GUANAKO TODAY AND PICC LINE PLACEMENT, NO COMPLAINTS OF PAIN OR DISCOMFORT THIS SHIFT OR ACUTE OVERNIGHT EVENTS, CONTINUE POC
--- NOTE | 2022-12-22 17:58 | NUR ---
SHIFT SUMMARY PATIENT AOX4, INDEPENDENT IN ROOM AND WALKING HALLS. DENIES ANY PAIN THROUGHOUT DAY. PICC LINE WITH SOME BLOOD PRESENT UNDER DRESSING. ICE PACK APPLIED OVER COBAN PRESSURE DRESSING. SITE WIHTOUT ANY REDNESS OR HEAT. PICC FLUSHES WELL. BED IN LOW POSITION. PATIENT CALLS APPROPRIATELY. WILL CONTINUE TO MONITOR.
--- NOTE | 2022-12-22 18:13 | NUR ---
THIS VICE PRESIDENT DIGITAL STRATEGIST HAS REVIEWED AND AGREES WITH ALL NOTES AND ASSESSMENTS BY NANCY JEN.
--- NOTE | 2022-12-23 05:05 | NUR ---
SHIFT SUMMERY, PT RESTING IN BED. PT ALERT AND ORIENTED, UP AT PO. PT NOT C/O PAIN. NEW PICC FLUSHING WELL. PT VERY HOPEFULL TO GET TO GO HOME TODAY, BUT PT SEEMS A LITTLE APREHENSIVE ABOUT USING PICC. PICC FLUSHED AND ANTIBIOTIC INFUSED , PT TOLERTED WELL. cCALL LIGHT IN REACH.
[2022-12-23] MEDS ORDERED: ACET325 PO (10:02)
[2022-12-23] MEDS ORDERED: FERSU300 PO (10:03)
[2022-12-23] MEDS ORDERED: CEFAZOLIN2 GM/50 M3 IV (10:03)
[2022-12-23] MEDS ORDERED: GABA300 PO (10:04)
[2022-12-23] MEDS ORDERED: LACT PO (10:04)
[2022-12-23] MEDS ORDERED: XARELTO20 MG PO (10:04)
--- NOTE | 2022-12-23 16:35 | NUR ---
DISCHARGE SUMMARY PATIENT INDEPENDENT IN ROOM AOX4, CALLS APPROPRIATELY. PAIN TO LEG CONTROLLED WITH MEDS PER EMAR. PATIENT EDUCATION PACKET PROVIDED. PATIENT SIGNED DISCHARGE PAPERS AT 1630 AND EXITED BUILDING WITH WHEELCHAIR WITH MANPREET SMITH @ 1643, DRIVEN HOME BY .
[2022-12-26 14:08] LABS: A/G RATIO 0.8 (0.7-1.7); ALBUMIN 3.4 g/dL (2.9-4.4); ALPHA-1-GLOBULIN 0.3 g/dL (0.0-0.4); ALPHA-2-GLOBULIN 0.8 g/dL (0.4-1.0); BETA GLOBULIN 1.1 g/dL (0.7-1.3); GAMMA GLOBULIN 1.9 g/dL (0.4-1.8); GLOBULIN, TOTAL 4.1 g/dL (2.2-3.9); M-SPIKE Not Observed g/dL (Not Observed); PROTEIN, TOTAL, SERUM 7.5 g/dL (6.0-8.5)
== END 2022-12-23 15:40 | disposition home health service (06) | DRG 314 ==
LOC: ER 09:05 → MEDS 14:19
PROVIDERS: Family Medicine; Hospitalist; Student in an Organized Health Care Education/Training Program; ADMIT Family Medicine
PROC: 3E03329 Introduction of Other Anti-infective into Peripheral Vein, Percutaneous Approach (ICD-10-PCS; 2022-12-08)
PROC: B24BZZ4 Ultrasonography of Heart with Aorta, Transesophageal (ICD-10-PCS; 2022-12-09)
PROC: 02HV33Z Insertion of Infusion Device into Superior Vena Cava, Percutaneous Approach (ICD-10-PCS; principal; 2022-12-22)
DX: T82.7XXA Infection and inflammatory reaction due to other cardiac and vascular devices, implants and grafts, initial encounter (principal); A41.01 Sepsis due to Methicillin susceptible Staphylococcus aureus; I82.0 Budd-Chiari syndrome; I82.220 Acute embolism and thrombosis of inferior vena cava; I80.8 Phlebitis and thrombophlebitis of other sites; R13.10 Dysphagia, unspecified; R30.0 Dysuria; R77.1 Abnormality of globulin; D50.9 Iron deficiency anemia, unspecified; R16.1 Splenomegaly, not elsewhere classified; M50.322 Other cervical disc degeneration at C5-C6 level; M50.323 Other cervical disc degeneration at C6-C7 level; M51.34 Other intervertebral disc degeneration, thoracic region; H49.20 Sixth [abducent] nerve palsy, unspecified eye; M79.605 Pain in left leg; Z91.041 Radiographic dye allergy status; Z86.711 Personal history of pulmonary embolism; Z90.49 Acquired absence of other specified parts of digestive tract; Z98.890 Other specified postprocedural states; Z79.01 Long term (current) use of anticoagulants; Z87.820 Personal history of traumatic brain injury; Z86.14 Personal history of Methicillin resistant Staphylococcus aureus infection; Z87.891 Personal history of nicotine dependence
CPT/HCPCS: 36415; 36569; 72156; 72157; 72158; 74177; 74220; 80053; 80202; 81001; 81240; 82728; 83540; 83550; 83605; 84145; 84165; 85025; 85301; 85303; 85306; 85520; 85610; 85651; 85730; 86140; 87040; 87077; 87186; 93306; 93312; 93325; 93976; 96365-59; 96366; 96375; 99152; 99285-25; A9270; A9579; C1751; J0690; J0696; J1644; J2250; J2920; J3010; J3370; J7030; J7050; Q9967

== ENCOUNTER 2022-12-29 00:44 | Day surgery (SDC) | payer OTHER ==
[~2022-12-29 00:44] MED LIST changes: +ACET325 PO; +CEFAZOLIN2 GM/50 M3 IV; +FERSU300 PO; +GABA300 PO; +LACT PO; +XARELTO20 MG PO
[2022-12-29 11:26] VITALS: BP 137/99
== END 2022-12-29 11:35 | disposition home or self-care (01) ==
LOC: ATC 00:44
DX: R78.81 Bacteremia (principal); Z88.0 Allergy status to penicillin; Z91.041 Radiographic dye allergy status; Z88.8 Allergy status to other drugs, medicaments and biological substances
CPT/HCPCS: 99212

== ENCOUNTER 2023-01-10 01:33 | Day surgery (SDC) | payer OTHER ==
[2023-01-10 11:26] VITALS: BP 131/85
[2023-01-10 11:55] LABS: BASOPHILS ABSOLUTE AUTO 0.03 K/mm3 (0.00-0.23); BASOPHILS PERCENT AUTO 1 % (0-2); EOSINOPHILS ABSOLUTE AUTO 0.15 K/mm3 (0.00-0.68); EOSINOPHILS PERCENT AUTO 4 % (0-6); Hematocrit 38.4 % (37.0-53.0); Hemoglobin 12.4 g/dL (13.5-17.5); IMMATURE GRAN ABSOLUTE AUTO 0.01 K/mm3 (0.00-0.10); IMMATURE GRAN PERCENT AUTO 0 % (0-1); LYMPHOCYTES ABSOLUTE AUTO 1.05 K/mm3 (0.84-5.20); LYMPHOCYTES PERCENT AUTO 28 % (21-46); MONOCYTES ABSOLUTE AUTO 0.41 K/mm3 (0.16-1.47); MONOCYTES PERCENT AUTO 11 % (4-13); Mean Corpuscular HGB 29.4 pg (26.0-34.0); Mean Corpuscular HGB Conc 32.3 g/dL (31.5-36.5); Mean Corpuscular Volume 91 fL (80-100); Mean Platelet Volume 10.2 fL (9.1-12.4); NEUTROPHILS ABSOLUTE AUTO 2.14 K/mm3 (1.96-9.15); NEUTROPHILS PERCENT AUTO 56 % (41-73); Platelet Count 182 K/mm3 (150-400); RDW Coefficient Variation 15.1 % (11.7-14.2); RDW Standard Deviation 50.4 fL (35.1-46.3); Red Blood Cell Count 4.22 M/mm3 (4.30-5.90); White Blood Cell Count 3.79 K/mm3 (4.00-11.30)
[2023-01-10 12:40] LABS: C-REACTIVE PROTEIN, EXT RANGE 0.324 mg/dL (0.000-0.300)
[2023-01-10 12:41] LABS: Albumin, Blood 3.5 g/dL (3.4-5.0); Albumin/Globulin Ratio 0.8 (0.8-1.8); Bilirubin, Total 0.3 mg/dL (0.1-1.0); Bun/Creatinine Ratio 13.3 (12.0-20.0); Calcium, Blood 8.9 mg/dL (8.5-10.1); Creatinine, Blood 0.9 mg/dL (0.60-1.20); Globulin, Blood 4.6 g/dL (2.2-4.0); Potassium, Blood 4.3 mmol/L (3.5-5.5); Total Protein, Blood 8.1 g/dL (6.4-8.2)
== END 2023-01-10 11:30 | disposition home or self-care (01) ==
LOC: ATC 01:33
PROVIDERS: Family Medicine
DX: A41.01 Sepsis due to Methicillin susceptible Staphylococcus aureus (principal)
CPT/HCPCS: 80053; 85025; 86140; 99211

== ENCOUNTER 2023-01-17 00:27 | Day surgery (SDC) | payer OTHER ==
[2023-01-17 11:26] VITALS: BP 123/83
[2023-01-17 11:39] LABS: BASOPHILS ABSOLUTE AUTO 0.02 K/mm3 (0.00-0.23); BASOPHILS PERCENT AUTO 1 % (0-2); EOSINOPHILS ABSOLUTE AUTO 0.11 K/mm3 (0.00-0.68); EOSINOPHILS PERCENT AUTO 3 % (0-6); Hematocrit 38.2 % (37.0-53.0); Hemoglobin 12.3 g/dL (13.5-17.5); IMMATURE GRAN ABSOLUTE AUTO 0.01 K/mm3 (0.00-0.10); IMMATURE GRAN PERCENT AUTO 0 % (0-1); LYMPHOCYTES ABSOLUTE AUTO 0.93 K/mm3 (0.84-5.20); LYMPHOCYTES PERCENT AUTO 26 % (21-46); MONOCYTES PERCENT AUTO 11 % (4-13); Mean Corpuscular HGB 29.5 pg (26.0-34.0); Mean Corpuscular HGB Conc 32.2 g/dL (31.5-36.5); Mean Corpuscular Volume 92 fL (80-100); Mean Platelet Volume 10.3 fL (9.1-12.4); NEUTROPHILS ABSOLUTE AUTO 2.14 K/mm3 (1.96-9.15); NEUTROPHILS PERCENT AUTO 59 % (41-73); Platelet Count 186 K/mm3 (150-400); RDW Coefficient Variation 14.8 % (11.7-14.2); RDW Standard Deviation 50.2 fL (35.1-46.3); Red Blood Cell Count 4.17 M/mm3 (4.30-5.90); White Blood Cell Count 3.61 K/mm3 (4.00-11.30)
[2023-01-17 12:05] LABS: Albumin, Blood 3.6 g/dL (3.4-5.0); Albumin/Globulin Ratio 0.9 (0.8-1.8); Bilirubin, Total 0.5 mg/dL (0.1-1.0); Bun/Creatinine Ratio 17.5 (12.0-20.0); C-REACTIVE PROTEIN, EXT RANGE 0.351 mg/dL (0.000-0.300); Calcium, Blood 8.9 mg/dL (8.5-10.1); Creatinine, Blood 0.86 mg/dL (0.60-1.20); Globulin, Blood 4.2 g/dL (2.2-4.0); Potassium, Blood 4.4 mmol/L (3.5-5.5); Total Protein, Blood 7.8 g/dL (6.4-8.2)
== END 2023-01-17 11:30 | disposition home or self-care (01) ==
LOC: ATC 00:27
PROVIDERS: Family Medicine
DX: R78.81 Bacteremia (principal); B95.61 Methicillin susceptible Staphylococcus aureus infection as the cause of diseases classified elsewhere
CPT/HCPCS: 36592; 80053; 85025; 86140

== ENCOUNTER 2023-01-24 01:43 | Day surgery (SDC) | payer OTHER ==
[2023-01-24 11:14] VITALS: BP 138/93
[2023-01-24 12:00] LABS: BASOPHILS ABSOLUTE AUTO 0.03 K/mm3 (0.00-0.23); BASOPHILS PERCENT AUTO 1 % (0-2); EOSINOPHILS ABSOLUTE AUTO 0.12 K/mm3 (0.00-0.68); EOSINOPHILS PERCENT AUTO 3 % (0-6); Hematocrit 40.3 % (37.0-53.0); Hemoglobin 13.3 g/dL (13.5-17.5); IMMATURE GRAN ABSOLUTE AUTO 0.01 K/mm3 (0.00-0.10); IMMATURE GRAN PERCENT AUTO 0 % (0-1); LYMPHOCYTES ABSOLUTE AUTO 1.09 K/mm3 (0.84-5.20); LYMPHOCYTES PERCENT AUTO 31 % (21-46); MONOCYTES ABSOLUTE AUTO 0.28 K/mm3 (0.16-1.47); MONOCYTES PERCENT AUTO 8 % (4-13); Mean Corpuscular HGB 29.6 pg (26.0-34.0); Mean Corpuscular Volume 90 fL (80-100); Mean Platelet Volume 10.1 fL (9.1-12.4); NEUTROPHILS ABSOLUTE AUTO 2.02 K/mm3 (1.96-9.15); NEUTROPHILS PERCENT AUTO 57 % (41-73); Platelet Count 194 K/mm3 (150-400); RDW Coefficient Variation 14.6 % (11.7-14.2); RDW Standard Deviation 48.3 fL (35.1-46.3); Red Blood Cell Count 4.49 M/mm3 (4.30-5.90); White Blood Cell Count 3.55 K/mm3 (4.00-11.30)
[2023-01-24 12:19] LABS: Alanine Aminotransfer (ALT/SGP 19 U/L (12-78); Albumin, Blood 3.8 g/dL (3.4-5.0); Albumin/Globulin Ratio 0.9 (0.8-1.8); Alk Phos 89 U/L (50-136); Anion Gap 2 mmol/L (6-16); Aspartate Aminotrans (AST/SGOT 27 U/L (12-37); Bilirubin, Total 0.6 mg/dL (0.1-1.0); Blood Urea Nitrogen 18 mg/dL (8-24); Bun/Creatinine Ratio 19.3 (12.0-20.0); C-REACTIVE PROTEIN, EXT RANGE <0.290 mg/dL (0.000-0.300); CO2, Blood 28 mmol/L (21-32); Calcium, Blood 8.7 mg/dL (8.5-10.1); Chloride, Blood 108 mmol/L (98-108); Creatinine, Blood 0.93 mg/dL (0.60-1.20); Globulin, Blood 4.1 g/dL (2.2-4.0); Glomerular Filtration Rate 106 (60-); Glucose, Blood 92 mg/dL (70-99); Potassium, Blood 4.2 mmol/L (3.5-5.5); Sodium, Blood 138 mmol/L (136-145); Total Protein, Blood 7.9 g/dL (6.4-8.2)
--- NOTE | 2023-01-24 12:51 | NUR ---
LABS SENT TO DR PANG AND [facility] PER ORDER
== END 2023-01-24 11:31 | disposition home or self-care (01) ==
LOC: ATC 01:43
PROVIDERS: Family Medicine
DX: A49.01 Methicillin susceptible Staphylococcus aureus infection, unspecified site (principal); R78.81 Bacteremia; Z88.0 Allergy status to penicillin; Z88.8 Allergy status to other drugs, medicaments and biological substances; Z79.899 Other long term (current) drug therapy
CPT/HCPCS: 36592; 80053; 85025; 86140

== ENCOUNTER 2023-01-30 01:45 | Day surgery (SDC) | payer OTHER ==
[2023-01-30 10:17] VITALS: BP 138/99
== END 2023-01-30 10:21 | disposition home or self-care (01) ==
LOC: ATC 01:45
DX: Z45.2 Encounter for adjustment and management of vascular access device (principal); R78.81 Bacteremia; B95.62 Methicillin resistant Staphylococcus aureus infection as the cause of diseases classified elsewhere
CPT/HCPCS: 99212

== ENCOUNTER 2024-03-15 10:15 | Day surgery (SDC) | payer OTHER ==
[2024-03-15] VITALS (12 sets, daily range): BP systolic 123–156; BP diastolic 80–102
[~2024-03-15] VITALS: Ht 188 cm; Wt 86.2 kg
[~2024-03-15 10:15] MED LIST changes: +ACET500 PO; +Lactated Ringer's 1,000 ML IV SCH
--- NOTE | 2024-03-15 11:15 | NUR ---
Ambulatory in Day Surgery History, Chart, Medications and Allergies reviewed before start of procedure. Pre-Op teaching done. Pt verbalizes understanding. Patient States Post-Procedure ride home has been arranged.
[2024-03-15] MEDS ORDERED: Bupivacaine 0.5% HCl 5 MG/ML 30MLVIAL ONE (12:12)
[2024-03-15] MEDS ORDERED: FentaNYL Citrate 50 MCG/ML 5 ML Injection ONE (12:27)
[2024-03-15] MEDS ORDERED: propofoL 20 ML IV ONE ×2 (12:27→12:28)
[2024-03-15] MEDS ORDERED: Rocuronium Bromide 10 MG/ML 5ML Injection IV ONE ×2 (12:28→14:20)
[2024-03-15] MEDS ORDERED: Lidocaine HCl 2% 20 ML MDV ONE (12:28)
[2024-03-15] MEDS ORDERED: Dexamethasone Sod Phos 10 MG/ML 1ML VIAL ONE (12:28)
[2024-03-15] MEDS ORDERED: Ondansetron HCl 2 MG / ML 2ML Vial ONE (12:28)
[2024-03-15] MEDS ORDERED: Ketorolac Tromethamine 30mg Vial ONE (12:28)
[2024-03-15] MEDS ORDERED: Labetalol HCL 5 MG/ML 4ML Injection (Single Dose) ONE (14:20)
[2024-03-15] MEDS ORDERED: HYDROmorphone HCl/Pf 1MG SYR ONE (16:16)
[2024-03-15] MEDS ORDERED: Sugammadex Sodium 200 MG/2ML SDV (100 MG/ML) ONE (16:18)
[2024-03-15] MEDS ORDERED: HYDROcodone 5-APAP 325 TAB PO PRN (16:50)
[2024-03-15] MEDS ORDERED: Ondansetron 4 MG SoluTab SL ONE (17:40)
--- NOTE | 2024-03-15 17:47 | NUR ---
History, Chart, Medications and Allergies reviewed before start of procedure. Patient States Post-Procedure ride home has been arranged WITH SPOUSE. Discharge instructions reviewed with patient. Patient verbalizes understanding. Copy given to patient to take home. PT REPORTING NAUSEA WHEN GETTING DRESSED. IV REMOVED. DR PATEL GAVE ORDER FOR 4MG SL ZOFRAN. SEE EMAR. PAIN REPORTED TOLERABLE.
--- NOTE | 2024-03-18 10:04 | NUR ---
FOLLOW UP PHONE CALL TO PATIENT. PT REPORTS HE HAS BEEN IN BED SINCE HE HAD HIS PROCEDURE (4 DAYS). STATES "I CAN'T COUGH VERY WELL BUT WHEN I DO IT HAS BLOOD IN IT." PT STATES HE HASN'T BEEN ABLE TO HAVE A BM SO HE'S NOT TAKING VERY MUCH PAIN MEDICINE" AND THEREFORE NOT MOVING AROUND MUCH. PT STATES HE HAS BEEN USING STOOL SOFTENERS BUT NOT EATING MUCH B/C HE FEELS CONSTIPATED. DENIES REDNESS OF INCISIONS AND FEVER, N/V. PT INSTRUCTED TO MOVE MORE, TAKE METAMUCIL OR MIRALAX, HYDRATE, INCREASE FIBER, USE ICE, PAIN MEDS. PT ALSO EDUCATED ON RISKS OF LAYING IN BED: INSTRUCTED TO C+DB, USE PILLOW FOR ABD SPLINTING IF COUGHING AND MOVE HIS LEGS AROUND TO PREVENT DVT. PT DOESN'T THINK HE HAS A F/U APPT UNTIL THE END OF MARCH BUT I ENCOURAGED HIM TO REVIEW HIS PAPERWORK B/C IT IS LIKELY THE WANTS TO SEE HIM SOONER. PT DOES SAY THAT HE HAS SOMEONE TO HELP CARE FOR HIM AT HOME. PT ENCOURAGED TO CALL 'S OFFICE TODAY AND SEE IF HE SHOULD BE SEEN THIS WEEK. PT SEEMS TO UNDERSTAND INSTRUCTIONS AND IS AGREEABLE TO PLAN.
== END 2024-03-15 23:04 | disposition home or self-care (01) ==
LOC: ORSCMMR 10:15 → ORD 13:45 → ORSCMMR 13:45 → ORD 14:00 → ORSCMMR 23:04
PROVIDERS: Surgery
PROC: 8E0W4CZ Robotic Assisted Procedure of Trunk Region, Percutaneous Endoscopic Approach (ICD-10-PCS; principal; 2024-03-15 13:45)
PROC: 0DNU4ZZ Release Omentum, Percutaneous Endoscopic Approach (ICD-10-PCS; principal; 2024-03-15 13:45)
PROC: 0WUF4JZ Supplement Abdominal Wall with Synthetic Substitute, Percutaneous Endoscopic Approach (ICD-10-PCS; principal; 2024-03-15 13:45)
DX: K43.0 Incisional hernia with obstruction, without gangrene (principal); K66.0 Peritoneal adhesions (postprocedural) (postinfection); Z86.718 Personal history of other venous thrombosis and embolism; Z79.01 Long term (current) use of anticoagulants; Z87.891 Personal history of nicotine dependence
CPT/HCPCS: A9270; J1100; J1170; J1885; J2405; J2704; J3010; J7120